=== PATIENT | female | born 1940 | race Hispanic/Latino ===

== ENCOUNTER 2017-08-28 09:29 | Day surgery (SDC) | payer MEDICARE ==
[2017-08-26 08:40] VITALS: BMI 23.6
[2017-08-28] MEDS ORDERED: Midazolam 2 MG/2 ML VIAL ONE (14:03)
[2017-08-28] MEDS ORDERED: Iodixanol 320 MG/ML 200 ML BOTTLE IV ONE (14:43)
[2017-08-28 15:05] LABS: ARTERIAL BLOOD GAS HCO3 23.2 mmol/L (21-28); ARTERIAL BLOOD GAS HEMOGLOBIN 10.4 g/dL (11.7-17.4); ARTERIAL BLOOD GAS O2 SAT 97.5 % (95-98); ARTERIAL BLOOD GAS PCO2 36 mm/Hg (35-45); ARTERIAL BLOOD GAS PO2 71 mm/Hg (80-100); ARTERIAL BLOOD GAS TCO2 23.4 mmol/L (22-28)
[2017-08-28 15:09] LABS: VENOUS BLOOD GAS BASE EXCESS -1.7 mmol/L (0.0-2.0); VENOUS BLOOD GAS PCO2 38 mmHg (40-60); VENOUS BLOOD GAS PO2 54 mm/Hg (30-55); VENOUS BLOOD PH 7.39 (7.32-7.43)
--- NOTE | 2017-08-29 03:21 | CARDCATH ---
PROCEDURE DATE: 08/28/2017 INDICATIONS: The patient is a pleasant 77-year-old female referred for evaluation of aortic stenosis. PROCEDURE PERFORMED: Complete heart catheterization with selective left and right coronary angiogram, right heart catheterization, hemodynamics, and saturation. RIGHT HEART CATH HEMODYNAMICS: RA pressure, mean was 1. RVEDP was 9. Mean PA pressure was 20. Cardiac output using thermodilution method was 4.2. Aortic valve area using peak to peak gradient was 0.68 with a mean gradient of 31 mmHg. CORONARY ANATOMY: Left main is a large-sized vessel that bifurcates into LAD and circ. LAD is a large-sized vessel with minimal luminal irregularity, gives off two small-sized diagonal branches. Left circumflex runs in the AV groove and gives off two obtuse marginal branches. RCA, large-sized vessel, co-dominant circulation, normal EF. IMPRESSION: Severe aortic stenosis, normal coronaries. RECOMMENDATIONS: Further evaluation for aortic valve replacement. Adrian Mora MD
== END 2017-08-28 20:01 | disposition home or self-care (01) ==
LOC: C.CATHLAB 09:29
PROVIDERS: ATTEND Internal Medicine Interventional Cardiology
DX: I35.0 Nonrheumatic aortic (valve) stenosis (principal)
CPT/HCPCS: 82803; 93460; J1644; J2250; J3010; Q9966